=== PATIENT | male | born 1995 | race Caucasian/White ===

== ENCOUNTER → 2025-01-03 08:39 | Outpatient (BNVA) | payer OTHER, SELFPAY | PROVIDERS: PCP Nurse Practitioner Family; Referring Provider Nurse Practitioner Family; Visit Provider Psychiatry & Neurology Neurology | DX: G40.909 Epilepsy, unspecified, not intractable, without status epilepticus (principal); R56.9 Unspecified convulsions; R40.4 Transient alteration of awareness | CPT/HCPCS: 99203 ==

== ENCOUNTER 2025-01-22 07:43 | Outpatient (CLI) | payer OTHER, SELFPAY ==
--- NOTE | 2025-01-22 08:00 | MR_ITS ---
WS: [id number] MRI HEAD WITH CONTRAST TECHNIQUE: Sagittal T1, T2 axial, T2 axial FLAIR, axial susceptibility weighted imaging, axial diffusion weighted images, and coronal T2 images were obtained. Pre and post-T1 axial and post T1 coronal images. ADC and FSPGR images. CLINICAL INFORMATION: G40.909 - Epilepsy, unspecified, not intractable, without... COMPARISON: None. FINDINGS: Normal optic chiasm and pituitary infundibulum. Temporal lobes and hippocampal formations are normal in appearance. No evidence of mesial temporal sclerosis. No abnormal gadolinium enhancement. No hemosiderin. Normal posterior fossa. Normal vascular flow voids at the skull base. No extra- axial fluid collections. Paranasal sinuses and mastoid air cells are well aerated. Normal posterior nasopharynx. No evidence of restricted diffusion to suggest acute ischemia. 1 or 2 tiny foci of T2 hyperintensity in the frontal white matter of doubtful clinical significance. No other suspicious intracranial signal abnormalities. MR/MR head wo/w con [id number] IMPRESSION: 1. No evidence of restricted diffusion to suggest acute ischemia. 2. 1 or 2 tiny foci of T2 hyperintensity in the frontal white matter of doubtf ul clinical significance. 3. No other suspicious intracranial signal abnormalities. 4. Temporal lobes and hippocampal formations are normal in appearance. 5. No hemosiderin. 6. No abnormal gadolinium enhancement.
[2025-01-22] MEDS: gadobenate dimeglumine 20 mL vial IV (08:30)
== END 2025-01-22 07:44 | disposition home or self-care (01) ==
LOC: RAD 07:43
PROVIDERS: PCP Nurse Practitioner Family; Visit Provider Psychiatry & Neurology Neurology
DX: G40.909 Epilepsy, unspecified, not intractable, without status epilepticus (principal)
CPT/HCPCS: 70553

== ENCOUNTER → 2025-02-01 08:48 | Outpatient (BNVA) | payer OTHER, SELFPAY | PROVIDERS: PCP Nurse Practitioner Family; Referring Provider Psychiatry & Neurology Neurology; Visit Provider Specialist | DX: R40.4 Transient alteration of awareness (principal); R56.9 Unspecified convulsions | CPT/HCPCS: 95819 ==